=== PATIENT | female | born 1940 | race Caucasian/White ===

== ENCOUNTER 2016-11-05 11:24 | Day surgery (SDC) | payer MEDICARE, OTHER ==
[~2016-11-05 11:24] MED LIST: Dexamethasone 4 MG/ML SDV IV ONE; Midazolam 1 MG/ML 2 ML SDV IV ONE
[2016-11-05] MEDS ORDERED: Acetaminophen/Codeine 300-30 MG Tab PO PRN (11:30)
[2016-11-05] MEDS ORDERED: Proparacaine 0.5% Ophth Soln 15 ML Bottle EYELF ONE (11:30)
[2016-11-05] MEDS ORDERED: Sodium Chloride 0.9% 10 ML Syringe FLUSH PRN (11:30)
[2016-11-05] MEDS ORDERED: Phenylephrine 10% Ophth Soln 5 ML Bot EYELF ONE (11:30)
[2016-11-05] MEDS ORDERED: Povidone-Iodine 5% Sterile Ophth Soln 30 ML Bottle EYELF ONE ×2 (11:30→12:11)
[2016-11-05] MEDS ORDERED: Phenylephrine 10% Ophth Soln 5 ML Bot EYELF PRN (11:30)
[2016-11-05] MEDS ORDERED: Moxifloxacin 0.5% Ophth Soln 3 ML Bottle EYELF ONE (11:30)
[2016-11-05] MEDS ORDERED: Timolol Maleate 0.5% Ophth Soln 5 ML Bottle EYELF ONE (11:30)
[2016-11-05] MEDS ORDERED: Ondansetron 4 MG/2 ML SDV IVPUSH PRN (11:30)
[2016-11-05] MEDS ORDERED: Cataract Ophth Solution EYELF ONE (11:30)
[2016-11-05] MEDS ORDERED: Acetaminophen 325 MG Tab PO PRN (11:30)
[2016-11-05] MEDS ORDERED: Diclofenac Sodium 0.1% Ophth Soln 5 ML Bottle EYELF ONE (12:11)
[2016-11-05] MEDS ORDERED: Apraclonidine 0.5% Ophth Soln 5 ML Bot EYELF ONE (12:11)
[2016-11-05] MEDS ORDERED: Tetracaine 0.5% 2 ML Bottle EYELF ONE (12:11)
[2016-11-05] MEDS ORDERED: Lidocaine 1% 30 ML SDV ONE (12:12)
[2016-11-05] MEDS ORDERED: Vancomycin 500 MG SDV EYELF ONE (12:12)
[2016-11-05] MEDS ORDERED: Balanced Salt Solution Ophth Irrig 500 ML Bottle IOCULAR ONE (12:12)
[2016-11-05] MEDS ORDERED: Dexamethasone/Neomycin/Polymyxin B Ophth Oint 3.5 GM Tube EYELF ONE (12:12)
[2016-11-05] MEDS ORDERED: Chondroitin Sulfate/Hyaluronate Sodium Ophth Inj 0.75 ML Syringe EYELF ONE (12:12)
--- NOTE | 2016-11-05 12:34 | OR ---
DATE: 11/05/2016 PREOPERATIVE DIAGNOSIS: Cataract, left eye. POSTOPERATIVE DIAGNOSIS: Cataract, left eye. PROCEDURE: Extracapsular cataract extraction with intraocular lens implant, left eye. ANESTHESIA: Topical/local MAC. COMPLICATIONS: None. INDICATION: The patient was seen in the clinic. She has complained of difficulty reading, difficulty seeing fine print, and she is unhappy with her vision. Her clinical examination reveals visually significant cataract. I explained options. I offered cataract surgery, and I explained risks preoperatively including, but not limited to, infection, retinal detachment, loss of vision, need for additional surgery, and risks associated with anesthesia. We discussed implant options. She requested a monofocal implant. She is comfortable wearing glasses following surgery if necessary. She voiced an understanding with respect to risks and limitations and wished to proceed. OPERATIVE DESCRIPTION: After informed consent was obtained and the risks, benefits, and alternatives were explained, the patient was brought to the operative suite and topical anesthesia was administered. The patient was then prepped and draped in the sterile fashion and attention was placed on the left eye. A sterile lid speculum was placed into the left eye to allow operative exposure. A full-thickness paracentesis was made in the temporal portion of the operative eye. Preservative-free lidocaine 0.1 mL was injected into the anterior chamber followed by viscoelastic. A full-thickness corneal incision was then made into the anterior chamber. A bent needle cystotome was used to create a small lucía in the anterior capsule. The capsulorrhexis forceps was then used to create a 360-degree curvilinear capsulorrhexis. The nucleus was then removed using a phacoemulsification handpiece and the remaining cortical material was then removed with irrigation and aspiration handpiece. Following removal of the cortical material, the capsular bag was then inspected and noted to be free of any holes or tears. Viscoelastic was then injected into the capsular bag and the intraocular lens was inserted into the capsular bag. No complications occurred. The viscoelastic material was then removed from both the anterior and posterior chambers and from behind the IOL. The lens and capsular bag were then reinspected. The IOL was well centered and the capsular bag intact. The wound and paracentesis sites were inspected and hydrated with balanced saline solution. Both were found to be self-sealing. The intraocular pressure was assessed digitally and found to be within normal range. A good red reflex was noted at the completion of the procedure. No complications occurred during the operation. At the completion of the procedure, Maxitrol, Voltaren, and Iopidine drops were placed into the operative eye. A sterile eye shield was placed over the operative eye and the patient was transported to the postoperative recovery area having tolerated the procedure well. Postoperative instructions were given along with a postoperative appointment. The patient was advised to call with any questions or concerns. [facility] /[id number]
[2016-11-05 13:14] VITALS: BP 120/79
== END 2016-11-05 13:17 | disposition home or self-care (01) ==
LOC: DL.SDS 11:24
PROVIDERS: ATTEND Ophthalmology
DX: H26.9 Unspecified cataract (principal); Z98.51 Tubal ligation status
CPT/HCPCS: 66984; A9270; J3370; J7050; 00142; C1780; J1100; J2250

== ENCOUNTER 2016-12-16 09:44 | Day surgery (SDC) | payer MEDICARE, OTHER ==
[~2016-12-16 09:44] MED LIST changes: -Dexamethasone 4 MG/ML SDV IV ONE; +Dexamethasone 4 MG/ML SDV ONE; -Midazolam 1 MG/ML 2 ML SDV IV ONE; +Midazolam 1 MG/ML 2 ML SDV ONE
[2016-12-16] MEDS ORDERED: Acetaminophen/Codeine 300-30 MG Tab PO PRN (10:00)
[2016-12-16] MEDS ORDERED: Phenylephrine 10% Ophth Soln 5 ML Bot EYERT PRN (10:00)
[2016-12-16] MEDS ORDERED: Povidone-Iodine 5% Sterile Ophth Soln 30 ML Bottle EYERT ONE ×2 (10:00→10:49)
[2016-12-16] MEDS ORDERED: Timolol Maleate 0.5% Ophth Soln 5 ML Bottle EYERT ONE (10:00)
[2016-12-16] MEDS ORDERED: Acetaminophen 325 MG Tab PO PRN (10:00)
[2016-12-16] MEDS ORDERED: Sodium Chloride 0.9% 10 ML Syringe FLUSH PRN (10:00)
[2016-12-16] MEDS ORDERED: Cataract Ophth Solution EYERT ONE (10:00)
[2016-12-16] MEDS ORDERED: Moxifloxacin 0.5% Ophth Soln 3 ML Bottle EYERT ONE (10:00)
[2016-12-16] MEDS ORDERED: Phenylephrine 10% Ophth Soln 5 ML Bot EYERT ONE (10:00)
[2016-12-16] MEDS ORDERED: Proparacaine 0.5% Ophth Soln 15 ML Bottle EYERT ONE (10:00)
[2016-12-16] MEDS ORDERED: Ondansetron 4 MG/2 ML SDV IVPUSH PRN (10:00)
[2016-12-16] MEDS ORDERED: Midazolam 1 MG/ML 2 ML SDV ONE (10:18)
[2016-12-16] MEDS ORDERED: Dexamethasone 4 MG/ML SDV ONE (10:18)
[2016-12-16] MEDS ORDERED: Dexamethasone/Neomycin/Polymyxin B Ophth Oint 3.5 GM Tube EYERT ONE (10:49)
[2016-12-16] MEDS ORDERED: Lidocaine 1% 30 ML SDV ONE (10:50)
[2016-12-16] MEDS ORDERED: Vancomycin 500 MG SDV EYERT ONE (10:50)
[2016-12-16] MEDS ORDERED: Balanced Salt Solution Ophth Irrig 500 ML Bottle IOCULAR ONE (10:50)
[2016-12-16] MEDS ORDERED: Tetracaine HCl/PF 0.5% 4 ML Bottle EYERT ONE (10:50)
[2016-12-16] MEDS ORDERED: Apraclonidine 0.5% Ophth Soln 5 ML Bot EYERT ONE (10:50)
[2016-12-16] MEDS ORDERED: Chondroitin Sulfate/Hyaluronate Sodium Ophth Inj 0.75 ML Syringe EYERT ONE (10:51)
--- NOTE | 2016-12-16 12:23 | OR ---
DATE: 12/16/2016 PREOPERATIVE DIAGNOSIS: Cataract, right eye. POSTOPERATIVE DIAGNOSIS: Cataract, right eye. PROCEDURE: Extracapsular cataract extraction with intraocular lens implant, right eye. ANESTHESIA: Topical/local MAC. COMPLICATIONS: None. INDICATION: Mrs. Rudolph was seen in the clinic. She has complained of a progressive decrease in vision. Clinical examination reveals visually significant mixed cataract. I explained options. I offered cataract surgery and I explained risks, including, but not limited to, infection, retinal detachment, loss of vision, need for additional surgery, and risks associated with anesthesia. She is symptomatic. She has requested cataract surgery and requested a monofocal implant. She understands that she may require glasses for some activities following surgery. OPERATIVE DESCRIPTION: After informed consent was obtained and the risks, benefits, and alternatives were explained, the patient was brought to the operative suite and topical anesthesia was administered. The patient was then prepped and draped in the sterile fashion and attention was placed on the right eye. A sterile lid speculum was placed into the right eye to allow operative exposure. A full-thickness paracentesis was made in the temporal portion of the operative eye. Preservative-free lidocaine 0.1 mL was injected into the anterior chamber followed by viscoelastic. A full-thickness corneal incision was then made into the anterior chamber. A bent needle cystotome was used to create a small lucía in the anterior capsule. The capsulorrhexis forceps was then used to create a 360-degree curvilinear capsulorrhexis. The nucleus was then removed using a phacoemulsification handpiece and the remaining cortical material was then removed with irrigation and aspiration handpiece. Following removal of the cortical material, the capsular bag was then inspected and noted to be free of any holes or tears. Viscoelastic was then injected into the capsular bag and the intraocular lens was inserted into the capsular bag. No complications occurred. The viscoelastic material was then removed from both the anterior and posterior chambers and from behind the IOL. The lens and capsular bag were then reinspected. The IOL was well centered and the capsular bag intact. The wound and paracentesis sites were inspected and hydrated with balanced saline solution. Both were found to be self-sealing. The intraocular pressure was assessed digitally and found to be within normal range. A good red reflex was noted at the completion of the procedure. No complications occurred during the operation. At the completion of the procedure, Maxitrol, Voltaren, and Iopidine drops were placed into the operative eye. A sterile eye shield was placed over the operative eye and the patient was transported to the postoperative recovery area having tolerated the procedure well. Postoperative instructions were given along with a postoperative appointment. The patient was advised to call with any questions or concerns. [facility] /[id number]
[2016-12-16 12:46] VITALS: BP 134/64
[2016-12-16] MEDS ORDERED: Midazolam 1 MG/ML 2 ML SDV IV ONE (16:45)
[2016-12-16] MEDS ORDERED: Dexamethasone 4 MG/ML SDV IV ONE (16:45)
== END 2016-12-16 12:00 | disposition home or self-care (01) ==
LOC: DL.SDS 09:44
PROVIDERS: ATTEND Ophthalmology
DX: H26.9 Unspecified cataract (principal)
CPT/HCPCS: 66984; A9270; C1780; J1100; J2250; J3370; J7050; 00142

== ENCOUNTER 2017-11-18 10:04 | Emergency (ER) | payer MEDICARE, OTHER ==
[2017-11-18 10:24] VITALS: BP 116/72
--- NOTE | 2017-11-18 10:50 | EDM.PDOC ---
ED HPI GENERAL MEDICAL PROBLEM - General Chief Complaint: Lower Extremity Injury/Pain Stated Complaint: KNEE PAIN Time Seen by Provider: 11/18/17 10:20 Source of Information: Reports: Patient, RN, RN Notes Reviewed History Limitations: Reports: No Limitations - History of Present Illness INITIAL COMMENTS - FREE TEXT/NARRATIVE: Lyn is a 77 yo F who presents today due to pain in her left leg. She had a total knee replacement on November [address] Shelton. She relates that she was feeling pretty good up until last night she started having increased pain to her leg. She reports that the pain is to the anterior of her leg distal to the incision. She does take an 81mg ASA daily since the surgery. She denies fever, nausea, vomiting, or any other concerns. Denies trauma to the knee since surgery. 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: Acetaminophen, Aspirin Left Knee Pain Score (Numeric/FACES): 8 - Related Data Allergies Allergy/AdvReac Type Severity Reaction Status Date / Time No Known Allergies Allergy Verified 11/18/17 10:24 Home Meds: Home Meds Ascorbic Acid [Vitamin C] 500 mg PO DAILY 11/18/17 [History] Cholecalciferol (Vitamin D3) [Vitamin D3] 400 units PO DAILY 11/18/17 [History] Cyanocobalamin (Vitamin B12) [Vitamin B13] 500 mcg PO DAILY 11/18/17 [History] Ferrous Sulfate [Iron] 325 mg PO DAILY 11/18/17 [History] Past Medical History - Past Health History Medical/Surgical History: Denies Medical/Surgical History HEENT History: Reports: Cataract, Impaired Vision Cardiovascular History: Reports: None Respiratory History: Reports: None Gastrointestinal History: Reports: Diverticulosis, Hemorrhoids Genitourinary History: Reports: None 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: Musculoskeletal History: Reports: Arthritis Neurological History: Reports: None Psychiatric History: Reports: None Endocrine/Metabolic History: Reports: None Hematologic History: Reports: Anemia, Iron Deficiency Immunologic History: Reports: None Oncologic (Cancer) History: Reports: None Dermatologic History: Reports: None - Infectious Disease History Infectious Disease History: Reports: Chicken Pox, Measles, Mumps, Other (See Below) Other Infectious Disease History: POLIO - Past Surgical History Head Surgeries/Procedures: Reports: None HEENT Surgical History: Reports: Cataract Surgery, Tonsillectomy Cardiovascular Surgical History: Reports: None Respiratory Surgical History: Reports: None GI Surgical History: Reports: Colonoscopy Female Surgical History: Reports: Tubal Ligation Endocrine Surgical History: Reports: None Musculoskeletal Surgical History: Reports: Other (See Below) Other Musculoskeletal Surgeries/Procedures:: knee surgury 11/08/17 Oncologic Surgical History: Reports: None Dermatological Surgical History: Reports: None Social & Family History - Family History Endocrine/Metabolic: Other Oncologic Family History: FATHER FROM CANCER- UNSURE WHAT TYPE - Tobacco Use Smoking Status *Q: Never Smoker Used Tobacco, but Quit: No Second Hand Smoke Exposure: No - Caffeine Use Caffeine Use: Reports: Coffee Other Caffeine Use: 3 CUPS COFFEE/DAY - Alcohol Use Days Per Week of Alcohol Use: 0 Number of Drinks Per Day: 0 Total Drinks Per Week: 0 - Recreational Drug Use Recreational Drug Use: No Drug Use in Last 12 Months: No Review of Systems - Review of Systems Review Of Systems: ROS reveals no pertinent complaints other than HPI. ED EXAM, GENERAL - Physical Exam Exam: See Below Exam Limited By: No Limitations General Appearance: Alert, WD/WN, No Apparent Distress Eye Exam: Bilateral Eye: PERRL Ears: Normal External Exam, Normal Canal, Hearing Grossly Normal, Normal TMs Ear Exam: Bilateral Ear: Auricle Normal, Canal Normal, TM normal Nose: Normal Inspection, Normal Mucosa, No Blood Throat/Mouth: Normal Inspection, Normal Lips, Normal Teeth, Normal Gums, Normal Oropharynx, Normal Voice, No Airway Compromise Head: Atraumatic, Normocephalic Neck: Normal Inspection, Supple, Non-Tender, Full Range of Motion Respiratory/Chest: No Respiratory Distress, Lungs Clear, Normal Breath Sounds, No Accessory Muscle Use, Chest Non-Tender Cardiovascular: Normal Peripheral Pulses, Regular Rate, Rhythm, No Edema, No Gallop, No JVD, No Murmur, No Rub GI/Abdominal: Normal Bowel Sounds, Soft, Non-Tender, No Organomegaly, No Distention, No Abnormal Bruit, No Mass (Female) Exam: Deferred Rectal (Female) Exam: Deferred Back Exam: Normal Inspection, Full Range of Motion, NT Extremities: Leg Pain (Large amount of ecchymosis noted to left leg present to posterior thigh, calf and lateral ankle. Patient has 2-3 plus edema present to her leg. Dressing in place over knee is dry and intact. Pedal and posterior tibial pulses present. Sensation intact. Right leg within normal limits.) Neurological: Alert, Oriented, CN II-XII Intact, Normal Cognition, Normal Gait, Normal Reflexes, No Motor/Sensory Deficits Psychiatric: Normal Affect, Normal Mood Skin Exam: Warm, Dry, Intact, Normal Color, No Rash, Ecchymosis (To left leg) Lymphatic: No Adenopathy Course - Vital Signs Last Recorded V/S: Last Vital Signs Temp 98.9 F 11/18/17 10:14 Pulse 99 11/18/17 10:14 Resp 16 11/18/17 10:14 BP 116/72 11/18/17 10:14 Pulse Ox 100 11/18/17 10:14 - Orders/Labs/Meds Labs: Laboratory Tests 11/18/17 11/18/17 11/18/17 Range/Units 10:57 10:57 10:57 WBC 8.5 (5.0-10.0) 10^3/uL RBC 3.47 L (4.2-5.4) 10^6/uL Hgb 11.2 L (12.0-16.0) g/dL Hct 34.7 L (37.0-47.0) % MCV 100.0 (80-100) fL MCH 32.3 (27.0-34.0) pg MCHC 32.3 L (33.0-35.0) g/dL Plt Count 356 (150-450) 10^3/uL Neut % (Auto) 78.3 H (42.2-75.2) % Lymph % (Auto) 11.5 L (20.5-50.1) % Gallia % (Auto) 8.8 H (2-8) % Eos % (Auto) 1.2 (1.0-3.0) % Baso % (Auto) 0.2 (0.0-1.0) % ESR 18 (0-20) mm/hr D-Dimer, Quantitative (0-400) ng/mL Sodium 139 (135-145) mmol/L Potassium 3.6 (3.6-5.0) mmol/L Chloride 100 L (101-111) mmol/L Carbon Dioxide 30.0 (21.0-31.0) mmol/L Anion Gap 12.6 BUN 19 H (7-18) mg/dL Creatinine 0.6 (0.6-1.3) mg/dL Est Cr Clr Drug Dosing 70.28 mL/min Estimated GFR (MDRD) > 60 BUN/Creatinine Ratio 31.66 Glucose 120 H (74-105) mg/dL Calcium 9.0 (8.4-10.2) mg/dl Total Bilirubin 0.8 (0.2-1.0) mg/dL AST 29 (10-42) IU/L ALT 28 (10-60) IU/L Alkaline Phosphatase 59 (42-121) IU/L C-Reactive Protein (0.0-1.3) mg/dL Total Protein 7.0 (6.7-8.2) g/dl Albumin 3.8 (3.2-5.5) g/dl Globulin 3.2 Albumin/Globulin Ratio 1.19 11/18/17 11/18/17 Range/Units 10:57 10:57 WBC (5.0-10.0) 10^3/uL RBC (4.2-5.4) 10^6/uL Hgb (12.0-16.0) g/dL Hct (37.0-47.0) % MCV (80-100) fL MCH (27.0-34.0) pg MCHC (33.0-35.0) g/dL Plt Count (150-450) 10^3/uL Neut % (Auto) (42.2-75.2) % Lymph % (Auto) (20.5-50.1) % Gallia % (Auto) (2-8) % Eos % (Auto) (1.0-3.0) % Baso % (Auto) (0.0-1.0) % ESR (0-20) mm/hr D-Dimer, Quantitative 3060 H (0-400) ng/mL Sodium (135-145) mmol/L Potassium (3.6-5.0) mmol/L Chloride (101-111) mmol/L Carbon Dioxide (21.0-31.0) mmol/L Anion Gap BUN (7-18) mg/dL Creatinine (0.6-1.3) mg/dL Est Cr Clr Drug Dosing mL/min Estimated GFR (MDRD) BUN/Creatinine Ratio Glucose (74-105) mg/dL Calcium (8.4-10.2) mg/dl Total Bilirubin (0.2-1.0) mg/dL AST (10-42) IU/L ALT (10-60) IU/L Alkaline Phosphatase (42-121) IU/L C-Reactive Protein 1.1 (0.0-1.3) mg/dL Total Protein (6.7-8.2) g/dl Albumin (3.2-5.5) g/dl Globulin Albumin/Globulin Ratio Meds: Medications Discontinued Medications Generic Name Dose Route Start Last Admin Trade Name Freq PRN Reason Stop Dose Admin Iopamidol 100 ml 11/18/17 13:57 11/18/17 15:07 Isovue-370 (76%) IVPUSH 11/18/17 13:58 56 ml ONETIME ONE Administration Departure - Departure Time of Disposition: 15:48 Disposition: Home, Self-Care 01 Condition: Good Clinical Impression: Left leg swelling - Discharge Information Forms: ED Department Discharge Care Plan Goals: Follow-up with orthopedics as scheduled. Elevate leg to help with the swelling. Return to the ER if you are experiencing shortness of breath, chest pains, or other concerns.
[2017-11-18 11:26] LABS: CHLORIDE,CL 100 mmol/L (101-111); SODIUM,NA 139 mmol/L (135-145)
[2017-11-18] MEDS ORDERED: Iopamidol 755 Mg/ML 100 ML Bottle IVPUSH ONE (13:57)
--- NOTE | 2017-11-18 13:58 | US ---
Clinical history: 77-year-old female with swelling and left calf pain (recent left knee surgery, 19 M arch). Serum D dimer greater than 3000. Rule out DVT. Interpretation: No sign of intraluminal echogenic thrombus identified in the left groin, thigh, knee or calf and sati sfactory augmentation venous waveforms noted respectively in the popliteal vein of the knee and proxi monica in the femoral veins of the left thigh i.e. no DVT. Large septated mixed density collection of fluid (4.3 x 1.2 x 3.0 cm) behind the knee consistent with appearance of Pierre's cyst and/or postoperative hematoma (peripheral vascularity). CONCLUSION: No current evidence deep vein thrombosis left lower extremity. Probable hematoma behind t he knee.
--- NOTE | 2017-11-18 15:45 | CT ---
CLINICAL HISTORY: 77-year-old 125 pound female recent orthopedic knee surgery (08 November 2017) with se rum D dimer >3000. PE? SCAN TECHNIQUE: Volume acquisition of data from the chest (bony thorax, lungs and mediastinum) obtain ed during the intravenous administration 56 cc nonionic Isovue 370 (4.3 cc/sec via injector) while th e patient was lying supine on the Siemens multislice scanner [place], [place]. All data archived in the PACS system for storage, reformatting axial/sagittal/coronal planes and study (lung/mediastinal windows). INTERPRETATION: No CT evidence of pulmonary embolism or infarct, i.e., negative exam.. 1. *Age-appropriate osteopenia, multilevel disc disease and hypertrophic arthritic changes kyphoscoli otic dorsal spine. 2. Normal cardiac silhouette. No pericardial effusions, alveolar edema or dependent pleural effusion. 3. No lung mass, hilar/mediastinal lymphadenopathy or malignant effusions. No lobar pneumonia. 4. No intraluminal filling defects or thrombus identified in the pulmonary artery circulation. No per ipheral areas of lobar oligemia or pleural-based wedge shaped infarcts. No pleural effusion. 5. No rib fracture. No pneumothorax or free subdiaphragmatic air. 6. No obvious abnormality of the upper abdominal viscera (where visualized) CONCLUSION: Low probability pulmonary embolism or infarct. No signs of heart failure lung mass or lob ar pneumonia.
== END 2017-11-18 16:10 | disposition home or self-care (01) ==
LOC: DL.ED 10:04
DX: R23.3 Spontaneous ecchymoses (principal); Z79.899 Other long term (current) drug therapy
CPT/HCPCS: 36415; 71260; 80053; 85025; 85379; 85651; 86140; 93971; 99284; Q9967

== ENCOUNTER 2022-12-27 21:34 | Inpatient (IN) | payer MEDICARE, OTHER ==
[2022-12-27] MEDS ORDERED: fentaNYL 100 MCG/2 ML SDV IVPUSH ONE (22:15)
[2022-12-27] MEDS ORDERED: Ondansetron 4 MG/2 ML SDV IVPUSH ONE (22:15)
[2022-12-27 22:52] LABS: BASOPHILS PERCENT AUTO 0.1 % (0.0-1.0); EOSINOPHILS PERCENT AUTO 0.5 % (1.0-3.0); HEMOGLOBIN 13.4 g/dL (12.0-16.0); LYMPHOCYTES PERCENT AUTO 5.5 % (20.5-50.1); MEAN CORPUSCULAR HGB CONC 31.9 g/dL (33.0-35.0); MEAN CORPUSCULAR VOLUME 97.2 fL (80-100); MONOCYTES PERCENT AUTO 2.2 % (2-8); NEUTROPHILS PERCENT AUTO 91.7 % (42.2-75.2); PLATELET COUNT,PLT 187 10^3/uL (150-450); RED BLOOD CELL COUNT 4.32 10^6/uL (4.2-5.4); WHITE BLOOD CELL COUNT,WBC 10.8 10^3/uL (5.0-10.0)
[2022-12-27 23:09] LABS: B-TYPE NATRIURETIC PEPTIDE,BNP 46 pg/ml (0-100)
[2022-12-27 23:14] LABS: PROTHROMBIN TIME 10.2 SEC (9.0-12.0); PTT,PARTIAL THROMBOPLSTIN TIME 25.3 SEC (22.0-34.0)
[2022-12-27 23:14] LABS: AMPHETAMINES,URINE NEGATIVE (NEGATIVE); BARBITURATES,URINE NEGATIVE (NEGATIVE); BENZODIAZEPINE,URINE NEGATIVE (NEGATIVE); MDMA (ECSTASY), URINE NEGATIVE (NEGATIVE); METHADONE,URINE NEGATIVE (NEGATIVE); METHAMPHETAMINES,URINE NEGATIVE (NEGATIVE); OPIATES,URINE NEGATIVE (NEGATIVE); OXYCODONE,URINE NEGATIVE (NEGATIVE); PHENCYCLIDINE,URINE NEGATIVE (NEGATIVE); TCA,URINE NEGATIVE (NEGATIVE)
[2022-12-27 23:26] LABS: LACTIC ACID 2.5 mmol/L (0.4-2.0)
[2022-12-27] MEDS ORDERED: HYDROmorphone 1 MG/ML Syringe IVPUSH ONE (23:40)
[2022-12-27 23:54] LABS: A/G RATIO 1.1; ALANINE AMINOTRANSFERASE,ALT 60 U/L (14-59); ALBUMIN 3.5 g/dL (3.4-5.0); ALKALINE PHOSPHATASE 65 U/L (46-116); ANION GAP 11.1 mEq/L (7-13); ASPARTATE AMNIOTRANSFERASE,AST 36 U/L (15-37); BILIRUBIN TOTAL 0.6 mg/dL (0.2-1.0); BLOOD UREA NITROGEN,BUN 20 mg/dL (7-18); BUN/CREATININE RATIO 24.4 (No establ ref range); CARBON DIOXIDE,CO2 32 mmol/L (21-32); CHLORIDE,CL 105 mmol/L (98-107); CREATININE 0.82 mg/dL (0.55-1.02); GLUCOSE RANDOM 86 mg/dL (70-99); POTASSIUM,K 4.1 mmol/L (3.5-5.1); PROTEIN TOTAL,TP 6.7 g/dL (6.4-8.2); SODIUM,NA 144 mmol/L (136-145)
[2022-12-27 23:58] LABS: C-REACTIVE PROTEIN < 0.2 mg/dL (0.0-0.9); ESTIMATED GFR 71 mL/min (>=60); ETHANOL BLOOD MEDICAL < 3 mg/dL (0)
[2022-12-28] MEDS ORDERED: Sodium Chloride 0.9% 1,000 ML IV ONE (01:34)
[2022-12-28] MEDS ORDERED: Acetaminophen 500 MG Tab PO ONE (01:34)
[2022-12-28] MEDS ORDERED: Acetaminophen Soln 160 MG/5 ML UD Cup PO ONE (01:54)
[2022-12-28] MEDS ORDERED: cefTRIAXone 2 GM Vial IM ONE (02:14)
[2022-12-28] MEDS ORDERED: Azithromycin 500 MG in Sodium Chloride 0.9% 250 ML IV ONE (02:16)
[2022-12-28] MEDS ORDERED: Docusate Sodium 100 MG Cap PO PRN (02:47)
[2022-12-28] MEDS ORDERED: Acetaminophen 325 MG Tab PO PRN (02:47)
[2022-12-28] MEDS ORDERED: Bisacodyl 5 MG Tab PO PRN (02:47)
[2022-12-28] MEDS ORDERED: Ondansetron 4 MG/2 ML SDV IVPUSH PRN (02:47)
[2022-12-28] MEDS ORDERED: risperiDONE 0.5 MG Tab PO PRN (02:55)
[2022-12-28] MEDS ORDERED: Acetaminophen 650 MG Supp RECTAL PRN (03:10)
[2022-12-28] MEDS: HYDROmorphone 0.5 MG/0.5 ML Syringe IVPUSH PRN ×2 (03:30→06:41)
[2022-12-28] MEDS ORDERED: cefTRIAXone 2 GM Vial IVPUSH ONE (04:00)
[2022-12-28 05:48] LABS: APPEARANCE,URINE CLEAR (CLEAR); BILIRUBIN,URINE NEGATIVE (NEGATIVE); COLOR,URINE YELLOW (YELLOW); GLUCOSE,URINE NEGATIVE (NEGATIVE); KETONES,URINE TRACE (NEGATIVE); LEUKOCYTE ESTERASE,URINE NEGATIVE (NEGATIVE); NITRITE,URINE NEGATIVE (NEGATIVE); OCCULT BLOOD,URINE LARGE (NEGATIVE); PH,URINE 5.5 (5.0-9.0); PROTEIN,URINE 30 (NEGATIVE); UROBILINOGEN,URINE 0.2 mg/dL (0.2-1.0)
[2022-12-28 06:04] LABS: RBC,URINE 40-50 /HPF (0-5); WBC,URINE 0-5 /HPF (0-5/HPF)
[2022-12-28 06:05] LABS: BACTERIA,URINE FEW /HPF (0-FEW/HPF); EPITHELIAL CELLS,URINE RARE /HPF (NOT SEEN); MUCUS,URINE MANY /LPF (NOT SEEN)
[2022-12-28 07:10] LABS: BASOPHILS PERCENT AUTO 0.1 % (0.0-1.0); EOSINOPHILS PERCENT AUTO 0.1 % (1.0-3.0); HEMATOCRIT 41.8 % (37.0-47.0); HEMOGLOBIN 13.4 g/dL (12.0-16.0); MEAN CORPUSCULAR HEMOGLOBIN 31.5 pg (27.0-34.0); MEAN CORPUSCULAR HGB CONC 32.1 g/dL (33.0-35.0); MEAN CORPUSCULAR VOLUME 98.1 fL (80-100); MONOCYTES PERCENT AUTO 4.4 % (2-8); NEUTROPHILS PERCENT AUTO 91.4 % (42.2-75.2); PLATELET COUNT,PLT 161 10^3/uL (150-450); RED BLOOD CELL COUNT 4.26 10^6/uL (4.2-5.4); WHITE BLOOD CELL COUNT,WBC 12.2 10^3/uL (5.0-10.0)
[2022-12-28 07:24] LABS: POTASSIUM,K 3.4 mmol/L (3.5-5.1)
[2022-12-28] MEDS: Enoxaparin 40 MG/0.4 ML Syringe SUBCUT SCH (08:07)
[2022-12-28 09:49] LABS: ANION GAP 10.4 mEq/L (7-13); CALCIUM 8.5 mg/dL (8.5-10.1); CREATININE 0.87 mg/dL (0.55-1.02); EST CRCL DRUG DOSING (CG) 44.87 mL/min
[2022-12-28] MEDS ORDERED: Potassium Chloride 10 MEQ Tab.ER PO ONE (10:30)
[2022-12-28] MEDS: Donepezil 10 MG Tab PO SCH (20:38)
[2022-12-28] MEDS: Memantine 10 MG Tab PO SCH (20:38)
[2022-12-28] MEDS: Haloperidol 1 MG Tab PO SCH (20:38)
[2022-12-28] MEDS: QUEtiapine 25 MG Tab PO SCH (20:38)
[2022-12-29] MEDS: cefTRIAXone 1 GM Vial IVPUSH SCH (04:08)
[2022-12-29] MEDS ORDERED: cefTRIAXone 1 GM Vial IVPUSH SCH (07:00)
[2022-12-29] MEDS ORDERED: Potassium Chloride 10 MEQ Tab.ER PO ONE (07:17)
[2022-12-29] MEDS: Cholecalciferol (Vitamin D3) 10 MCG Tab PO SCH (08:27)
[2022-12-29] MEDS: Memantine 10 MG Tab PO SCH ×2 (08:27→23:16)
[2022-12-29] MEDS: Ferrous Sulfate 325 MG Tab PO SCH (08:27)
[2022-12-29] MEDS: Cyanocobalamin (Vitamin B12) 100 MCG Tab PO SCH (08:27)
[2022-12-29] MEDS: Haloperidol 1 MG Tab PO SCH ×2 (08:28→23:16)
[2022-12-29] MEDS: Enoxaparin 40 MG/0.4 ML Syringe SUBCUT SCH (08:29)
[2022-12-29] MEDS: Ascorbic Acid 500 MG Tab PO SCH (08:29)
[2022-12-29] MEDS: Azithromycin 250 MG Tab PO SCH (08:29)
[2022-12-29] MEDS: Donepezil 10 MG Tab PO SCH (23:15)
[2022-12-29] MEDS: QUEtiapine 25 MG Tab PO SCH (23:15)
[2022-12-29] MEDS: Acetaminophen/HYDROcodone 325-5 MG Tab PO PRN (23:16)
[2022-12-30] MEDS: cefTRIAXone 1 GM Vial IVPUSH SCH (04:33)
[2022-12-30] MEDS: Acetaminophen/HYDROcodone 325-5 MG Tab PO PRN ×3 (04:33→21:03)
[2022-12-30] MEDS: Azithromycin 250 MG Tab PO SCH (09:11)
[2022-12-30] MEDS: Cholecalciferol (Vitamin D3) 10 MCG Tab PO SCH (09:11)
[2022-12-30] MEDS: Haloperidol 1 MG Tab PO SCH ×2 (09:11→21:05)
[2022-12-30] MEDS: Ascorbic Acid 500 MG Tab PO SCH (09:13)
[2022-12-30] MEDS: Polyethylene Glycol 3350 Powder 17 GM Packet PO SCH (09:14)
[2022-12-30] MEDS: Enoxaparin 40 MG/0.4 ML Syringe SUBCUT SCH (09:14)
[2022-12-30] MEDS: Ferrous Sulfate 325 MG Tab PO SCH (09:14)
[2022-12-30] MEDS: Cyanocobalamin (Vitamin B12) 100 MCG Tab PO SCH (09:14)
[2022-12-30] MEDS: Memantine 10 MG Tab PO SCH ×2 (09:14→21:03)
[2022-12-30] MEDS ORDERED: guaiFENesin 600 MG Tab.ER PO SCH (09:15)
[2022-12-30] MEDS: HYDROmorphone 0.5 MG/0.5 ML Syringe IVPUSH PRN (11:32)
[2022-12-30] MEDS: Donepezil 10 MG Tab PO SCH (21:03)
[2022-12-30] MEDS: QUEtiapine 25 MG Tab PO SCH (21:04)
[2022-12-31] MEDS: Acetaminophen/HYDROcodone 325-5 MG Tab PO PRN ×2 (02:50→08:06)
[2022-12-31] MEDS ORDERED: Sodium Chloride 0.9% 10 ML Syringe FLUSH PRN (02:59)
[2022-12-31] MEDS: cefTRIAXone 1 GM Vial IVPUSH SCH (03:00)
[2022-12-31 07:47] VITALS: BP 131/74; PULSE 83
[2022-12-31] MEDS: Ascorbic Acid 500 MG Tab PO SCH (08:06)
[2022-12-31] MEDS: Ferrous Sulfate 325 MG Tab PO SCH (08:06)
[2022-12-31] MEDS: Polyethylene Glycol 3350 Powder 17 GM Packet PO SCH (08:06)
[2022-12-31] MEDS: Memantine 10 MG Tab PO SCH (08:06)
[2022-12-31] MEDS: Haloperidol 1 MG Tab PO SCH (08:06)
[2022-12-31] MEDS: Cyanocobalamin (Vitamin B12) 100 MCG Tab PO SCH (08:08)
[2022-12-31] MEDS: Azithromycin 250 MG Tab PO SCH (08:08)
[2022-12-31] MEDS: Cholecalciferol (Vitamin D3) 10 MCG Tab PO SCH (08:09)
[2022-12-31] MEDS: Enoxaparin 40 MG/0.4 ML Syringe SUBCUT SCH (08:09)
[2023-01-01] MEDS ORDERED: Ciprofloxacin 500 MG Tab PO SCH (09:00)
== END 2022-12-31 11:12 | disposition swing bed (61) | DRG 552 ==
LOC: DL.ED 21:34 → UNDOADMIN 12-28 01:59 → DL.MS 12-28 01:59
PROVIDERS: ADMIT Internal Medicine; ATTEND Internal Medicine
DX: S32.10XA Unspecified fracture of sacrum, initial encounter for closed fracture (principal); S32.512A Fracture of superior rim of left pubis, initial encounter for closed fracture; S32.592A Other specified fracture of left pubis, initial encounter for closed fracture; N39.0 Urinary tract infection, site not specified; L03.116 Cellulitis of left lower limb; L03.115 Cellulitis of right lower limb; B96.20 Unspecified Escherichia coli [E. coli] as the cause of diseases classified elsewhere; G30.9 Alzheimer's disease, unspecified; F02.80 Dementia in other diseases classified elsewhere, unspecified severity, without behavioral disturbance, psychotic disturbance, mood disturbance, and anxiety; W18.30XA Fall on same level, unspecified, initial encounter; J40 Bronchitis, not specified as acute or chronic; S00.03XA Contusion of scalp, initial encounter; K59.00 Constipation, unspecified; L89.322 Pressure ulcer of left buttock, stage 2; Z66 Do not resuscitate; M19.90 Unspecified osteoarthritis, unspecified site; D50.9 Iron deficiency anemia, unspecified; Z98.49 Cataract extraction status, unspecified eye; Z90.89 Acquired absence of other organs; Y92.090 Kitchen in other non-institutional residence as the place of occurrence of the external cause; Z98.890 Other specified postprocedural states; Z98.51 Tubal ligation status
CPT/HCPCS: 36415; 51702; 70450; 71045; 72192; 80048; 80053; 80305-QW; 80307; 81001; 83605; 83735; 83880; 85025; 85610; 85730; 86140; 87040; 87086; 87088; 87186; 93970; 96361; 96374; 96375; 97110-GP; 97161-GP; 97165-GO; 97530-GO; 99223; 99233; 99239; 99285; 99285-25; A9270-GY; J0456; J0696; J1170; J1650; J2405; J3010; J7030; J7050

== ENCOUNTER 2022-12-31 09:34 | Inpatient (IN) | payer MEDICARE, OTHER ==
[2022-12-31] MEDS ORDERED: Polyethylene Glycol 3350 Powder 17 GM Packet PO PRN (12:06)
[2022-12-31] MEDS ORDERED: Bisacodyl 5 MG Tab PO PRN (12:06)
[2022-12-31] MEDS ORDERED: Acetaminophen 325 MG Tab PO PRN (12:06)
[2022-12-31] MEDS ORDERED: Ondansetron 4 MG/2 ML SDV IVPUSH PRN (12:06)
[2022-12-31] MEDS ORDERED: Docusate Sodium 100 MG Cap PO PRN (12:06)
[2022-12-31 12:57] LABS: ANION GAP 7.2 mEq/L (7-13); BLOOD UREA NITROGEN,BUN 14 mg/dL (7-18); CALCIUM 8.5 mg/dL (8.5-10.1); CARBON DIOXIDE,CO2 34 mmol/L (21-32); CHLORIDE,CL 105 mmol/L (98-107); CREATININE 0.65 mg/dL (0.55-1.02); GLUCOSE RANDOM 99 mg/dL (70-99); POTASSIUM,K 4.2 mmol/L (3.5-5.1); SODIUM,NA 142 mmol/L (136-145)
[2022-12-31 12:58] LABS: ESTIMATED GFR 88 mL/min (>=60)
[2022-12-31] MEDS: Acetaminophen/HYDROcodone 325-5 MG Tab PO PRN (18:07)
[2022-12-31] MEDS: QUEtiapine 25 MG Tab PO SCH (20:21)
[2022-12-31] MEDS: Memantine 10 MG Tab PO SCH (20:21)
[2022-12-31] MEDS: Donepezil 10 MG Tab PO SCH (20:21)
[2022-12-31] MEDS: HYDROmorphone 1 MG/ML Syringe IVPUSH PRN (22:01)
[2023-01-01] MEDS: HYDROmorphone 1 MG/ML Syringe IVPUSH PRN ×2 (03:59→21:36)
[2023-01-01] MEDS: Cholecalciferol (Vitamin D3) 10 MCG Tab PO SCH (08:57)
[2023-01-01] MEDS: Ascorbic Acid 500 MG Tab PO SCH (08:57)
[2023-01-01] MEDS: Cyanocobalamin (Vitamin B12) 1,000 MCG Tab PO SCH (08:57)
[2023-01-01] MEDS: Ciprofloxacin 500 MG Tab PO SCH ×2 (08:57→21:10)
[2023-01-01] MEDS: Enoxaparin 40 MG/0.4 ML Syringe SUBCUT SCH (08:57)
[2023-01-01] MEDS: Memantine 10 MG Tab PO SCH ×2 (08:57→21:09)
[2023-01-01] MEDS: Ferrous Sulfate 325 MG Tab PO SCH (08:57)
[2023-01-01] MEDS: QUEtiapine 25 MG Tab PO SCH (21:09)
[2023-01-01] MEDS: Donepezil 10 MG Tab PO SCH (21:10)
[2023-01-02] MEDS: HYDROmorphone 1 MG/ML Syringe IVPUSH PRN ×2 (05:08→20:17)
[2023-01-02] MEDS: Ascorbic Acid 500 MG Tab PO SCH (08:37)
[2023-01-02] MEDS: Cyanocobalamin (Vitamin B12) 1,000 MCG Tab PO SCH (08:37)
[2023-01-02] MEDS: Ciprofloxacin 500 MG Tab PO SCH ×2 (08:37→20:14)
[2023-01-02] MEDS: Ferrous Sulfate 325 MG Tab PO SCH (08:37)
[2023-01-02] MEDS: Cholecalciferol (Vitamin D3) 10 MCG Tab PO SCH (08:37)
[2023-01-02] MEDS: Acetaminophen/HYDROcodone 325-5 MG Tab PO PRN ×2 (08:38→17:19)
[2023-01-02] MEDS: Memantine 10 MG Tab PO SCH ×2 (08:38→20:13)
[2023-01-02] MEDS: Enoxaparin 40 MG/0.4 ML Syringe SUBCUT SCH (08:40)
[2023-01-02] MEDS: QUEtiapine 25 MG Tab PO SCH (20:13)
[2023-01-02] MEDS: Donepezil 10 MG Tab PO SCH (20:13)
[2023-01-03] MEDS: Ascorbic Acid 500 MG Tab PO SCH (09:19)
[2023-01-03] MEDS: Cyanocobalamin (Vitamin B12) 1,000 MCG Tab PO SCH (09:19)
[2023-01-03] MEDS: Cholecalciferol (Vitamin D3) 10 MCG Tab PO SCH (09:19)
[2023-01-03] MEDS: Ferrous Sulfate 325 MG Tab PO SCH (09:20)
[2023-01-03] MEDS: Memantine 10 MG Tab PO SCH ×2 (09:20→21:31)
[2023-01-03] MEDS: Enoxaparin 40 MG/0.4 ML Syringe SUBCUT SCH (09:21)
[2023-01-03] MEDS: Ciprofloxacin 500 MG Tab PO SCH ×2 (09:21→21:31)
[2023-01-03] MEDS: Acetaminophen/HYDROcodone 325-5 MG Tab PO PRN ×2 (12:13→21:32)
[2023-01-03] MEDS: QUEtiapine 25 MG Tab PO SCH (21:31)
[2023-01-03] MEDS: Donepezil 10 MG Tab PO SCH (21:32)
[2023-01-03] MEDS: HYDROmorphone 1 MG/ML Syringe IVPUSH PRN (22:49)
[2023-01-04] MEDS: Acetaminophen/HYDROcodone 325-5 MG Tab PO PRN (05:17)
[2023-01-04 06:18] LABS: BASOPHILS PERCENT AUTO 0.4 % (0.0-1.0); HEMATOCRIT 36.5 % (37.0-47.0); HEMOGLOBIN 11.7 g/dL (12.0-16.0); LYMPHOCYTES PERCENT AUTO 9.4 % (20.5-50.1); MEAN CORPUSCULAR HEMOGLOBIN 31.5 pg (27.0-34.0); MEAN CORPUSCULAR HGB CONC 32.1 g/dL (33.0-35.0); MEAN CORPUSCULAR VOLUME 98.1 fL (80-100); MONOCYTES PERCENT AUTO 11.4 % (2-8); NEUTROPHILS PERCENT AUTO 75.8 % (42.2-75.2); PLATELET COUNT,PLT 254 10^3/uL (150-450); RED BLOOD CELL COUNT 3.72 10^6/uL (4.2-5.4); WHITE BLOOD CELL COUNT,WBC 6.9 10^3/uL (5.0-10.0)
[2023-01-04] MEDS: Enoxaparin 40 MG/0.4 ML Syringe SUBCUT SCH (08:31)
[2023-01-04] MEDS: Ascorbic Acid 500 MG Tab PO SCH ×2 (08:32→08:48)
[2023-01-04] MEDS: Ciprofloxacin 500 MG Tab PO SCH ×2 (08:32→08:49)
[2023-01-04] MEDS: Memantine 10 MG Tab PO SCH ×3 (08:32→20:08)
[2023-01-04] MEDS: Cyanocobalamin (Vitamin B12) 1,000 MCG Tab PO SCH (08:33)
[2023-01-04] MEDS: Cholecalciferol (Vitamin D3) 10 MCG Tab PO SCH ×2 (08:33→08:49)
[2023-01-04] MEDS: Ferrous Sulfate 325 MG Tab PO SCH ×2 (08:33→08:49)
[2023-01-04] MEDS: Donepezil 10 MG Tab PO SCH (20:08)
[2023-01-04] MEDS: QUEtiapine 25 MG Tab PO SCH (20:08)
[2023-01-04] MEDS: HYDROmorphone 1 MG/ML Syringe IVPUSH PRN (21:24)
[2023-01-05] MEDS: HYDROmorphone 1 MG/ML Syringe IVPUSH PRN (03:21)
[2023-01-05 07:51] VITALS: BP 135/84; PULSE 90
[2023-01-05] MEDS: Acetaminophen/HYDROcodone 325-5 MG Tab PO PRN (09:25)
[2023-01-05] MEDS: Ferrous Sulfate 325 MG Tab PO SCH (09:25)
[2023-01-05] MEDS: Ascorbic Acid 500 MG Tab PO SCH (09:25)
[2023-01-05] MEDS: Cholecalciferol (Vitamin D3) 10 MCG Tab PO SCH (09:25)
[2023-01-05] MEDS: Memantine 10 MG Tab PO SCH (09:25)
[2023-01-05] MEDS: Cyanocobalamin (Vitamin B12) 1,000 MCG Tab PO SCH (09:25)
[2023-01-05] MEDS: Enoxaparin 40 MG/0.4 ML Syringe SUBCUT SCH (09:26)
== END 2023-01-05 10:23 | DRG 560 ==
LOC: UNDOADMIN 11:12 → DL.MS 11:12
PROVIDERS: ADMIT Internal Medicine; ATTEND Internal Medicine
DX: S32.10XD Unspecified fracture of sacrum, subsequent encounter for fracture with routine healing (principal); N39.0 Urinary tract infection, site not specified; G30.9 Alzheimer's disease, unspecified; F02.80 Dementia in other diseases classified elsewhere, unspecified severity, without behavioral disturbance, psychotic disturbance, mood disturbance, and anxiety; M19.90 Unspecified osteoarthritis, unspecified site; D50.9 Iron deficiency anemia, unspecified; Z66 Do not resuscitate; L89.322 Pressure ulcer of left buttock, stage 2; K59.00 Constipation, unspecified; J40 Bronchitis, not specified as acute or chronic; H54.7 Unspecified visual loss; Z90.89 Acquired absence of other organs; S32.512D Fracture of superior rim of left pubis, subsequent encounter for fracture with routine healing; S32.592D Other specified fracture of left pubis, subsequent encounter for fracture with routine healing; Z98.51 Tubal ligation status; Z98.49 Cataract extraction status, unspecified eye; Z98.890 Other specified postprocedural states
CPT/HCPCS: 36415; 80048; 85025; 97161-GP; 97165-GO; 97530-GO; 97530-GP; A9270-GY; J1170; J1650